=== PATIENT | female | born 1980 | race African-American/Black ===

== ENCOUNTER 2021-08-17 09:36 | Emergency (ER) | payer OTHER ==
[2021-08-17 11:08] LABS: Bilirubin Neg (Negative); Blood, Urine 150 (Negative); Clarity Cloudy (Clear); Glucose, Urine (Dipstick) >=1000 mg/dL (Negative); Ketone, Urine Negative (Negative); Leukocyte 500 (Negative); Nitrite Negative (Negative); Protein, Urine (Dipstick) 100 mg/dl (Neg-Trace); Urobilinogen Normal mg/dL (Less than 2)
[2021-08-17 11:23] LABS: Bacteria/HPF 3+ HPF (None Seen); WBC/HPF 21-50 HPF (0-3)
[2021-08-17 12:22] LABS: #Basophils 0.1 10x3/uL (0.0-0.2); #Eosinphils 0.1 10x3/uL (0.0-0.5); #Monocytes 0.7 10x3/uL (0.0-1.1); #Neutrophils 6.1 10x3/uL (1.5-8.4); %Basophils 0.7 % (0.0-2.0); %Eosinophils 0.6 % (0.0-6.0); %Lymphocytes 20.2 % (18.0-47.0); %Neutrophils 70.2 % (40.0-75.0); Hemoglobin 11.4 g/dL (12.0-15.5); Mean Corpuscular Hemoglobin 28.4 pg (27.0-33.0); Mean Corpuscular Volume 85.8 fl (81.6-98.3); Mean Platelet Volume 9.5 fl (7.4-10.4); Platelet Count 305 10x3/uL (150-450); RBC Distribution Width 12.8 % (11.5-14.5); Red Blood Cell (RBC) Count 4.02 10x6/uL (3.90-5.03); White Blood Cell (WBC) Count 8.7 10x3/uL (3.5-10.5)
[2021-08-17 12:35] LABS: Anion Gap 13 mmol/L (10-20); BUN (Urea Nitrogen) 26 mg/dL (7.0-18.7); Calc. Creatinine Clearance 0 mL/min (70-130); Calcium 9.7 mg/dL (7.8-10.44); Carbon Dioxide 26 mmol/L (22-29); Chloride 99 mmol/L (98-107); Glucose 352 mg/dL (70-105); Potassium 4.5 mmol/L (3.5-5.1); Sodium 133 mmol/L (136-145)
== END 2021-08-17 21:19 | disposition home or self-care (01) ==
LOC: CSHERS 09:36
DX: L03.116 Cellulitis of left lower limb (principal); N39.0 Urinary tract infection, site not specified; E10.9 Type 1 diabetes mellitus without complications; J45.909 Unspecified asthma, uncomplicated; F17.210 Nicotine dependence, cigarettes, uncomplicated; B20 Human immunodeficiency virus [HIV] disease
CPT/HCPCS: 36415; 80048; 81003; 81015; 83605; 85025; 87077; 87086; 87186; 99283

== ENCOUNTER 2021-08-20 15:44 | Emergency (ER) | payer OTHER ==
[2021-08-20] MEDS ORDERED: Boostrix 0.5 ML (Tdap) VIAL ONE (18:48)
[2021-08-20] MEDS ORDERED: Bacitracin 1 PK ONE (18:59)
== END 2021-08-20 19:07 | disposition home or self-care (01) ==
LOC: CSHERS 15:44
DX: L02.416 Cutaneous abscess of left lower limb (principal); N39.0 Urinary tract infection, site not specified; E10.9 Type 1 diabetes mellitus without complications; B20 Human immunodeficiency virus [HIV] disease; Z23 Encounter for immunization; F17.210 Nicotine dependence, cigarettes, uncomplicated
CPT/HCPCS: 90471; 90715; 99282

== ENCOUNTER 2021-12-16 10:39 | Emergency (ER) | payer OTHER | END 2021-12-16 12:01 | disposition home or self-care (01) | LOC: CSHERS 10:39 | DX: M79.675 Pain in left toe(s) (principal); M79.89 Other specified soft tissue disorders; F17.210 Nicotine dependence, cigarettes, uncomplicated; E10.9 Type 1 diabetes mellitus without complications; B20 Human immunodeficiency virus [HIV] disease ==

== ENCOUNTER 2021-12-19 20:05 | Inpatient (IN) | payer MEDICARE, OTHER ==
[2021-12-19 21:23] LABS: #Eosinphils 0.1 10x3/uL (0.0-0.5); #Monocytes 0.7 10x3/uL (0.0-1.1); #Neutrophils 9.8 10x3/uL (1.5-8.4); %Basophils 0.2 % (0.0-2.0); %Eosinophils 0.5 % (0.0-6.0); %Monocytes 6.1 % (0.0-10.0); %Neutrophils 82.4 % (40.0-75.0); Hemoglobin 9.6 g/dL (12.0-15.5); Mean Corpuscular HGB CONC 32.8 g/dL (32.0-36.0); Mean Corpuscular Hemoglobin 27.5 pg (27.0-33.0); Mean Platelet Volume 8.9 fl (7.4-10.4); Platelet Count 395 10x3/uL (150-450); RBC Distribution Width 12.8 % (11.5-14.5); Red Blood Cell (RBC) Count 3.49 10x6/uL (3.90-5.03); White Blood Cell (WBC) Count 11.9 10x3/uL (3.5-10.5)
[2021-12-19] MEDS ORDERED: Cefepime 2 GM VIAL ONE (21:25)
[2021-12-19 21:33] LABS: BHCG - Serum Negative (NEGATIVE); Pregs Control Background? CLEAR/WHITE (CLR/WHITE); Pregs Control Bar Appear? YES (CONTROL BAR)
[2021-12-19 21:39] LABS: ALT (SGPT) 17 U/L (8-55); AST (SGOT) 17 U/L (5-34); Albumin 3.5 g/dL (3.5-5.0); Alkaline Phosphatase 114 U/L (40-110); Anion Gap 16 mmol/L (10-20); BUN (Urea Nitrogen) 21 mg/dL (7.0-18.7); Bilirubin, Total 0.2 mg/dL (0.2-1.2); Calc. Creatinine Clearance 0 mL/min (70-130); Carbon Dioxide 26 mmol/L (22-29); Chloride 99 mmol/L (98-107); Estimated GFR 56; Globulin 4.7 g/dL (2.4-3.5); Glucose 119 mg/dL (70-105); Potassium 3.5 mmol/L (3.5-5.1); Protein, Total 8.2 g/dL (6.0-8.3); Sodium 137 mmol/L (136-145)
[2021-12-19] MEDS ORDERED: Lidocaine 1% (PF) 30 ML VIAL ONE ×2 (22:25→22:31)
[2021-12-19] MEDS ORDERED: Dextrose 5% in Water 1,000 ML IV PRN (22:34)
[2021-12-19] MEDS ORDERED: Guaifenesin DM 100-10/5 ML UDCUP PO PRN (22:35)
[2021-12-19] MEDS ORDERED: Ondansetron PF 4 MG/2 ML Vial IVP PRN (22:35)
[2021-12-19] MEDS ORDERED: Calcium Carbonate 500 MG ChewTAB PO PRN (22:35)
[2021-12-19] MEDS ORDERED: Ventolin HFA Inhaler 60 PUFF INHALER INH PRN (22:41)
[2021-12-19] MEDS ORDERED: Lactated Ringer's 1,000 ML IV SCH (23:59)
[2021-12-20 00:24] VITALS: BMI 20.4
[2021-12-20] MEDS: Morphine 2 MG/ML VIAL SLOW IVP PRN (00:28)
[2021-12-20] MEDS: HumaLOG 300 UNITS/3 ML VIAL SC PRN ×4 (00:29→17:50)
[2021-12-20 02:05] LABS: SARS-CoV-2 NAA Rapid Test Not Detected (NotDetected)
[2021-12-20 04:44] LABS: #Monocytes 0.7 10x3/uL (0.0-1.1); #Neutrophils 9.1 10x3/uL (1.5-8.4); %Basophils 0.4 % (0.0-2.0); %Eosinophils 0.4 % (0.0-6.0); %Lymphocytes 12.1 % (18.0-47.0); %Neutrophils 80.3 % (40.0-75.0); Hemoglobin 9.7 g/dL (12.0-15.5); Mean Corpuscular HGB CONC 31.9 g/dL (32.0-36.0); Mean Corpuscular Hemoglobin 26.9 pg (27.0-33.0); Mean Corpuscular Volume 84.2 fl (81.6-98.3); Mean Platelet Volume 9.6 fl (7.4-10.4); Platelet Count 398 10x3/uL (150-450); Red Blood Cell (RBC) Count 3.61 10x6/uL (3.90-5.03); White Blood Cell (WBC) Count 11.3 10x3/uL (3.5-10.5)
[2021-12-20 04:55] LABS: Anion Gap 14 mmol/L (10-20); BUN (Urea Nitrogen) 17 mg/dL (7.0-18.7); Calc. Creatinine Clearance 51 mL/min (70-130); Carbon Dioxide 24 mmol/L (22-29); Chloride 100 mmol/L (98-107); Estimated GFR 64; Glucose 263 mg/dL (70-105); Potassium 3.9 mmol/L (3.5-5.1); Sodium 134 mmol/L (136-145)
[2021-12-20 05:02] LABS: Troponin I Less than 0.010 ng/mL (< 0.028)
[2021-12-20 07:25] LABS: Troponin I Less than 0.010 ng/mL (< 0.028)
[2021-12-20] MEDS: Mometasone 100 MCG/PUFF (1 INHALER) INH SCH ×2 (07:38→18:59)
[2021-12-20] MEDS ORDERED: Gabapentin 300 MG CAP PO SCH ×2 (09:00→13:00)
[2021-12-20] MEDS ORDERED: BIKTARVY PO SCH (09:00)
[2021-12-20] MEDS: Cefepime 1 GM in Sodium Chloride 0.9% 100 ML IVPB SCH ×2 (10:58→20:55)
[2021-12-20] MEDS: Vancomycin HCl 750 MG in Sodium Chloride 0.9% 250 ML 250 ML IVPB SCH ×2 (10:59→23:30)
[2021-12-20] MEDS: Lisinopril 2.5 MG TAB PO SCH (10:59)
[2021-12-20] MEDS: Enoxaparin Sodium 40 MG/0.4 ML SYRINGE SC SCH (10:59)
[2021-12-20 12:35] LABS: Hemoglobin A1c Greater than 14.0 % (4.0-6.0)
[2021-12-20] MEDS: Acetaminophen 325 MG TAB PO PRN (13:30)
[2021-12-20] MEDS: Gabapentin 300 MG CAP PO SCH ×2 (17:48→20:56)
[2021-12-20] MEDS: Lantus 1000 UNITS/10 ML VIAL SC SCH (20:57)
[2021-12-20] MEDS: HYDROcodone/Acetaminophen 5/325 mg Tablet PO PRN (20:57)
[2021-12-21] MEDS: HumaLOG 300 UNITS/3 ML VIAL SC PRN ×3 (00:28→12:18)
[2021-12-21] MEDS: Gabapentin 300 MG CAP PO SCH ×3 (08:46→20:06)
[2021-12-21] MEDS: Enoxaparin Sodium 40 MG/0.4 ML SYRINGE SC SCH (08:46)
[2021-12-21] MEDS: Cefepime 1 GM in Sodium Chloride 0.9% 100 ML IVPB SCH ×2 (08:46→20:05)
[2021-12-21] MEDS: Lisinopril 2.5 MG TAB PO SCH (08:46)
[2021-12-21] MEDS: Dextrose 50% Abboject 50 ML SYRINGE SLOW IVP PRN (08:47)
[2021-12-21] MEDS: Mometasone 100 MCG/PUFF (1 INHALER) INH SCH ×2 (10:39→18:48)
[2021-12-21 10:59] LABS: Vancomycin, Trough 17.1 ug/mL
[2021-12-21] MEDS: Vancomycin HCl 750 MG in Sodium Chloride 0.9% 250 ML 250 ML IVPB SCH ×2 (12:17→23:19)
[2021-12-21] MEDS: hydrALAZINE 20 MG/ML VIAL SLOW IVP PRN (13:21)
[2021-12-21] MEDS: Lorazepam 0.5 MG TAB PO PRN ×2 (13:22→21:59)
[2021-12-21] MEDS: HYDROcodone/Acetaminophen 5/325 mg Tablet PO PRN ×2 (14:38→21:58)
[2021-12-21 15:13] LABS: %CD4 (Helper/Inducer) 23.1 % (30.8-58.5); Absolute CD4 254 /uL (359-1519); Lymphocytes/Gated Cell Count 1.1 x10E3/uL (0.7-3.1); Total Lymphocyte 11 % (Not Estab.); WBC Total Count 10.1 x10E3/uL (3.4-10.8)
[2021-12-21] MEDS ORDERED: Cefepime 1 GM VIAL ONE (20:06)
[2021-12-21] MEDS: Lisinopril 5 MG TAB PO SCH (20:07)
[2021-12-21] MEDS: Lantus 1000 UNITS/10 ML VIAL SC SCH (22:23)
[2021-12-22] MEDS: HumaLOG 300 UNITS/3 ML VIAL SC PRN ×3 (05:35→21:45)
[2021-12-22 06:25] LABS: Anion Gap 11 mmol/L (10-20); BUN (Urea Nitrogen) 18 mg/dL (7.0-18.7); Calc. Creatinine Clearance 47 mL/min (70-130); Calcium 9.1 mg/dL (7.8-10.44); Carbon Dioxide 27 mmol/L (22-29); Chloride 99 mmol/L (98-107); Estimated GFR 58; Glucose 379 mg/dL (70-105); Potassium 4.6 mmol/L (3.5-5.1); Sodium 132 mmol/L (136-145)
[2021-12-22 06:28] LABS: #Monocytes 0.6 10x3/uL (0.0-1.1); #Neutrophils 7.3 10x3/uL (1.5-8.4); %Basophils 0.3 % (0.0-2.0); %Eosinophils 0.4 % (0.0-6.0); %Lymphocytes 11.5 % (18.0-47.0); %Monocytes 6.1 % (0.0-10.0); %Neutrophils 80.2 % (40.0-75.0); Hemoglobin 8.7 g/dL (12.0-15.5); Mean Corpuscular HGB CONC 32.2 g/dL (32.0-36.0); Mean Corpuscular Hemoglobin 27.4 pg (27.0-33.0); Mean Corpuscular Volume 84.9 fl (81.6-98.3); Mean Platelet Volume 9.2 fl (7.4-10.4); Platelet Count 419 10x3/uL (150-450); RBC Distribution Width 13.2 % (11.5-14.5); Red Blood Cell (RBC) Count 3.18 10x6/uL (3.90-5.03); White Blood Cell (WBC) Count 9.1 10x3/uL (3.5-10.5)
[2021-12-22] MEDS: Mometasone 100 MCG/PUFF (1 INHALER) INH SCH ×2 (06:30→20:07)
[2021-12-22] MEDS: Enoxaparin Sodium 40 MG/0.4 ML SYRINGE SC SCH (07:59)
[2021-12-22] MEDS: Gabapentin 300 MG CAP PO SCH ×3 (08:12→21:28)
[2021-12-22] MEDS: hydrALAZINE 20 MG/ML VIAL SLOW IVP PRN ×2 (08:12→12:16)
[2021-12-22] MEDS: FLUoxetine HCl 10 MG CAP PO SCH (08:12)
[2021-12-22] MEDS: Cefepime 1 GM in Sodium Chloride 0.9% 100 ML IVPB SCH (08:12)
[2021-12-22] MEDS: Lisinopril 5 MG TAB PO SCH (08:12)
[2021-12-22] MEDS: Dextrose 50% Abboject 50 ML SYRINGE SLOW IVP PRN (08:15)
[2021-12-22] MEDS ORDERED: [UNRECOGNIZED DRUG - OTHER] PO SCH (09:00)
[2021-12-22] MEDS: Acetaminophen 325 MG TAB PO PRN (10:12)
[2021-12-22] MEDS ORDERED: Amlodipine 5 MG TAB PO SCH (10:30)
[2021-12-22] MEDS ORDERED: Bupivacaine 0.25% HCL 30 ML VIAL ONE (10:35)
[2021-12-22] MEDS ORDERED: Neomycin-Polymyxin 1 ML AMP ONE (10:36)
[2021-12-22] MEDS: Vancomycin HCl 750 MG in Sodium Chloride 0.9% 250 ML 250 ML IVPB SCH ×2 (10:58→23:50)
[2021-12-22] MEDS ORDERED: Fentanyl 100 MCG/2 ML VIAL ONE (13:34)
[2021-12-22] MEDS ORDERED: Midazolam HCl 2 mg/2 ml Vial ONE (13:34)
[2021-12-22] MEDS ORDERED: EPINEPHrine 1 MG/ML AMP ONE (13:50)
[2021-12-22] MEDS: hydrALAZINE 25 MG TAB PO SCH ×2 (15:30→21:27)
[2021-12-22] MEDS: HYDROcodone/Acetaminophen 10/325 mg Tablet PO PRN ×2 (16:58→23:43)
[2021-12-22] MEDS: Lisinopril 10 MG TAB PO SCH (21:26)
[2021-12-22] MEDS: Aspirin 81 mg Enteric Coated Tablet PO SCH (21:26)
[2021-12-22 21:36] LABS: HIV-1 Quantitative, RNA PCR <20 copies/mL (.)
[2021-12-22] MEDS: Lantus 1000 UNITS/10 ML VIAL SC SCH (21:42)
[2021-12-22 22:58] LABS: Vancomycin, Trough 21.2 ug/mL
[2021-12-22] MEDS ORDERED: Vancomycin HCl 500 MG in Sodium Chloride 0.9% 100 ML IVPB SCH (23:59)
[2021-12-23] MEDS: HumaLOG 300 UNITS/3 ML VIAL SC PRN ×3 (06:45→15:43)
[2021-12-23] MEDS: Morphine 2 MG/ML VIAL SLOW IVP PRN ×2 (06:48→14:16)
[2021-12-23] MEDS: HYDROcodone/Acetaminophen 10/325 mg Tablet PO PRN ×4 (06:53→21:25)
[2021-12-23] MEDS: Gabapentin 300 MG CAP PO SCH ×3 (08:18→21:25)
[2021-12-23] MEDS: Lisinopril 10 MG TAB PO SCH ×2 (08:18→21:25)
[2021-12-23] MEDS: hydrALAZINE 25 MG TAB PO SCH ×3 (08:18→21:32)
[2021-12-23] MEDS: Aspirin 81 mg Enteric Coated Tablet PO SCH ×2 (08:18→21:31)
[2021-12-23] MEDS: FLUoxetine HCl 10 MG CAP PO SCH (08:20)
[2021-12-23] MEDS: Enoxaparin Sodium 40 MG/0.4 ML SYRINGE SC SCH (08:20)
[2021-12-23] MEDS ORDERED: diphenhydrAMINE 50 MG/ML VIAL IVP PRN (08:31)
[2021-12-23] MEDS: Oxacillin 2 GM in Sodium Chloride 0.9% 100 ML IVPB SCH ×4 (11:15→21:39)
[2021-12-23] MEDS: hydrALAZINE 20 MG/ML VIAL SLOW IVP PRN (12:26)
[2021-12-23] MEDS: Mometasone 100 MCG/PUFF (1 INHALER) INH SCH ×2 (15:45→19:25)
[2021-12-23] MEDS: Lorazepam 0.5 MG TAB PO PRN (17:40)
[2021-12-23] MEDS: Lantus 1000 UNITS/10 ML VIAL SC SCH (21:29)
[2021-12-24] MEDS: Oxacillin 2 GM in Sodium Chloride 0.9% 100 ML IVPB SCH ×4 (02:00→14:16)
[2021-12-24] MEDS: HumaLOG 300 UNITS/3 ML VIAL SC PRN ×2 (06:39→11:13)
[2021-12-24] MEDS: Mometasone 100 MCG/PUFF (1 INHALER) INH SCH (07:45)
[2021-12-24] MEDS: hydrALAZINE 25 MG TAB PO SCH (08:55)
[2021-12-24] MEDS: HYDROcodone/Acetaminophen 10/325 mg Tablet PO PRN ×2 (08:56→13:34)
[2021-12-24] MEDS: Gabapentin 300 MG CAP PO SCH (08:56)
[2021-12-24] MEDS: FLUoxetine HCl 10 MG CAP PO SCH (08:57)
[2021-12-24] MEDS: Aspirin 81 mg Enteric Coated Tablet PO SCH (08:57)
[2021-12-24] MEDS: Lisinopril 10 MG TAB PO SCH (08:57)
[2021-12-24] MEDS: Enoxaparin Sodium 40 MG/0.4 ML SYRINGE SC SCH (08:58)
[2021-12-24] MEDS: Morphine 2 MG/ML VIAL SLOW IVP PRN (11:02)
[2021-12-24 12:12] VITALS: BP 161/101; TEMP 97.5
== END 2021-12-24 15:02 | disposition home or self-care (01) | DRG 970 ==
LOC: CSHERS 20:05 → CSHTELE 23:54
PROVIDERS: ADMIT Student in an Organized Health Care Education/Training Program; ATTEND Hospitalist
PROC: 0J9R0ZZ Drainage of Left Foot Subcutaneous Tissue and Fascia, Open Approach (ICD-10-PCS; 2021-12-19)
PROC: 3E03329 Introduction of Other Anti-infective into Peripheral Vein, Percutaneous Approach (ICD-10-PCS; 2021-12-19)
PROC: 0Y6Q0Z0 Detachment at Left 1st Toe, Complete, Open Approach (ICD-10-PCS; principal; 2021-12-22)
DX: A41.01 Sepsis due to Methicillin susceptible Staphylococcus aureus (principal); B20 Human immunodeficiency virus [HIV] disease; L02.612 Cutaneous abscess of left foot; L03.116 Cellulitis of left lower limb; M86.8X7 Other osteomyelitis, ankle and foot; E11.40 Type 2 diabetes mellitus with diabetic neuropathy, unspecified; F17.210 Nicotine dependence, cigarettes, uncomplicated; E11.65 Type 2 diabetes mellitus with hyperglycemia; J45.20 Mild intermittent asthma, uncomplicated; N18.30 Chronic kidney disease, stage 3 unspecified; I12.9 Hypertensive chronic kidney disease with stage 1 through stage 4 chronic kidney disease, or unspecified chronic kidney disease; E11.22 Type 2 diabetes mellitus with diabetic chronic kidney disease; D63.1 Anemia in chronic kidney disease; J45.909 Unspecified asthma, uncomplicated; F41.9 Anxiety disorder, unspecified; E11.69 Type 2 diabetes mellitus with other specified complication; Z20.822 Contact with and (suspected) exposure to COVID-19; Z88.2 Allergy status to sulfonamides; Z88.1 Allergy status to other antibiotic agents; Z79.51 Long term (current) use of inhaled steroids; Z79.899 Other long term (current) drug therapy; Z91.14 Patient's other noncompliance with medication regimen; Z98.890 Other specified postprocedural states
CPT/HCPCS: 10060; 36415; 36416; 80048; 80053; 80202; 82565; 83036; 83605; 84145; 84484; 84703; 85025; 85652; 86140; 86361; 87040; 87070; 87077; 87186; 87205; 87536; 88305; 88311; 94760; 96365; 96367; 97139; J0171; J0360; J0692; J1200; J1650; J1815; J2001; J2250; J2270; J2700; J3010; J3370; J3490; J7050; J7120; J7999; S0020; U0002

== ENCOUNTER 2022-02-19 13:59 | Emergency (ER) | payer OTHER ==
[2022-02-19] MEDS ORDERED: diphenhydrAMINE 50 MG/ML VIAL ONE (15:52)
[2022-02-19] MEDS ORDERED: Ketorolac Tromethamine 30 MG/ML VIAL ONE (15:52)
[2022-02-19] MEDS ORDERED: Magnesium 2 GM/50 ML BAG (IN WATER) ONE (15:52)
== END 2022-02-19 18:23 | disposition home or self-care (01) ==
LOC: CSHERS 13:59
DX: S09.90XA Unspecified injury of head, initial encounter (principal); E10.9 Type 1 diabetes mellitus without complications; Z79.4 Long term (current) use of insulin; B20 Human immunodeficiency virus [HIV] disease; F17.210 Nicotine dependence, cigarettes, uncomplicated; V89.2XXA Person injured in unspecified motor-vehicle accident, traffic, initial encounter
CPT/HCPCS: 70450; 96361; 96374; 96375; J1200; J1885; J3475

== ENCOUNTER 2022-08-17 12:19 | Emergency (ER) | payer OTHER ==
[2022-08-17] MEDS ORDERED: Dextrose 50% Abboject 50 ML SYRINGE ONE (12:25)
[2022-08-17 12:33] LABS: #Basophils 0.1 10x3/uL (0.0-0.2); #Eosinphils 0.1 10x3/uL (0.0-0.5); #Monocytes 0.5 10x3/uL (0.0-1.1); #Neutrophils 5.2 10x3/uL (1.5-8.4); %Basophils 0.7 % (0.0-2.0); %Eosinophils 0.9 % (0.0-6.0); %Lymphocytes 30.5 % (18.0-47.0); %Monocytes 6.3 % (0.0-10.0); %Neutrophils 61.1 % (40.0-75.0); Hemoglobin 11.5 g/dL (12.0-15.5); Mean Corpuscular HGB CONC 31.9 g/dL (32.0-36.0); Mean Corpuscular Hemoglobin 26.6 pg (27.0-33.0); Mean Corpuscular Volume 83.1 fl (81.6-98.3); Mean Platelet Volume 8.6 fl (7.4-10.4); Platelet Count 406 10x3/uL (150-450); RBC Distribution Width 13.4 % (11.5-14.5); Red Blood Cell (RBC) Count 4.33 10x6/uL (3.90-5.03); White Blood Cell (WBC) Count 8.6 10x3/uL (3.5-10.5)
[2022-08-17 12:49] LABS: ALT (SGPT) 15 U/L (8-55); AST (SGOT) 22 U/L (5-34); Albumin 4.2 g/dL (3.5-5.0); Alkaline Phosphatase 86 U/L (40-110); Anion Gap 14 mmol/L (10-20); BUN (Urea Nitrogen) 21 mg/dL (7.0-18.7); Bilirubin, Total 0.1 mg/dL (0.2-1.2); Calc. Creatinine Clearance 0 mL/min (70-130); Carbon Dioxide 23 mmol/L (22-29); Chloride 107 mmol/L (98-107); Estimated GFR 49; Globulin 4.8 g/dL (2.4-3.5); Potassium 4.2 mmol/L (3.5-5.1); Sodium 140 mmol/L (136-145)
[2022-08-17 12:56] LABS: Glucose 19 mg/dL (70-105)
== END 2022-08-17 15:18 | disposition home or self-care (01) ==
LOC: CSHERS 12:19
DX: E10.649 Type 1 diabetes mellitus with hypoglycemia without coma (principal); B20 Human immunodeficiency virus [HIV] disease; F17.210 Nicotine dependence, cigarettes, uncomplicated; Z79.899 Other long term (current) drug therapy; Z79.4 Long term (current) use of insulin
CPT/HCPCS: 36416; 93005; 96374; J7999

== ENCOUNTER 2022-08-22 06:11 | Day surgery (SDC) | payer OTHER ==
[2022-08-21 10:28] VITALS: BMI 22.3
[2022-08-22] MEDS ORDERED: Bupivacaine HCl 0.5%/Epinephrine 1:200,000/PF 30 ml Vial ONE (06:24)
[2022-08-22] MEDS ORDERED: CeleCOXIB 100 MG CAP ONE (06:44)
[2022-08-22] MEDS ORDERED: Famotidine/PF 20 mg/2ml Vial ONE (06:44)
[2022-08-22] MEDS ORDERED: CEFAZOLIN 2 GM VIAL ONE (06:56)
[2022-08-22] MEDS ORDERED: Midazolam HCl 2 mg/2 ml Vial ONE ×2 (06:58→07:26)
[2022-08-22] MEDS ORDERED: PROPOFOL 20 ML ONE (06:58)
[2022-08-22] MEDS ORDERED: Rocuronium Bromide 10 MG/ML (10ML VIAL) ONE (06:58)
[2022-08-22] MEDS ORDERED: Lidocaine 1% PF 5 ML VIAL ONE (06:58)
[2022-08-22] MEDS ORDERED: Fentanyl 100 MCG/2 ML VIAL ONE ×2 (06:58→09:46)
[2022-08-22] MEDS ORDERED: ePHEDrine Sulfate 50 MG/10 ML VIAL ONE (06:59)
[2022-08-22] MEDS ORDERED: Insulin Regular 300 UNITS/3 ML VIAL ONE (07:06)
[2022-08-22 07:14] LABS: BHCG - Serum Negative (NEGATIVE); Pregs Control Background? CLEAR/WHITE (CLR/WHITE); Pregs Control Bar Appear? YES (CONTROL BAR)
[2022-08-22] MEDS ORDERED: Ondansetron PF 4 MG/2 ML Vial ONE (08:33)
[2022-08-22] MEDS ORDERED: SUGAMMADEX SODIUM 200 MG/2 ML VIAL ONE (09:04)
[2022-08-22] MEDS ORDERED: PHENYLEPHRINE-NS 100 MCG/ML 10 ML SYRINGE ONE (09:07)
[2022-08-22] MEDS ORDERED: HYDROcodone/Acetaminophen 5/325 mg Tablet ONE (10:46)
== END 2022-08-22 13:25 | disposition home or self-care (01) ==
LOC: CSHSDC 06:11
PROVIDERS: ATTEND Obstetrics & Gynecology
PROC: 0UT94ZZ Resection of Uterus, Percutaneous Endoscopic Approach (ICD-10-PCS; principal; 2022-08-22)
PROC: 0UT74ZZ Resection of Bilateral Fallopian Tubes, Percutaneous Endoscopic Approach (ICD-10-PCS; principal; 2022-08-22)
PROC: 0UT24ZZ Resection of Bilateral Ovaries, Percutaneous Endoscopic Approach (ICD-10-PCS; principal; 2022-08-22)
DX: N80.03 Adenomyosis of the uterus (principal); R87.613 High grade squamous intraepithelial lesion on cytologic smear of cervix (HGSIL); R87.810 Cervical high risk human papillomavirus (HPV) DNA test positive; N70.11 Chronic salpingitis; N73.6 Female pelvic peritoneal adhesions (postinfective); E11.43 Type 2 diabetes mellitus with diabetic autonomic (poly)neuropathy; K31.84 Gastroparesis; N83.8 Other noninflammatory disorders of ovary, fallopian tube and broad ligament; B20 Human immunodeficiency virus [HIV] disease; I10 Essential (primary) hypertension; Z79.899 Other long term (current) drug therapy; Z98.890 Other specified postprocedural states; Z79.4 Long term (current) use of insulin; Z88.2 Allergy status to sulfonamides; F17.200 Nicotine dependence, unspecified, uncomplicated
CPT/HCPCS: 36416; 84703; 86850; 86900; 86901; 88307; 88341; 88342; C9250; J1815; J2250; J2405; J2704; J3010; S0028

== ENCOUNTER 2023-03-26 19:25 | Emergency (ER) | payer MEDICARE, OTHER ==
[2023-03-26] MEDS ORDERED: Acetaminophen 500 MG TAB ONE (19:58)
[2023-03-26 20:59] LABS: SARS-CoV-2 NAA Rapid Test Not Detected (NotDetected)
== END 2023-03-26 21:10 | disposition home or self-care (01) ==
LOC: CSHERS 19:25
DX: J10.1 Influenza due to other identified influenza virus with other respiratory manifestations (principal); F17.210 Nicotine dependence, cigarettes, uncomplicated; E10.9 Type 1 diabetes mellitus without complications; Z20.822 Contact with and (suspected) exposure to COVID-19
CPT/HCPCS: 0240U; 71045; 99283

== ENCOUNTER 2023-04-06 09:51 | Inpatient (IN) | payer MEDICARE ==
[2023-04-06] MEDS ORDERED: Ketorolac Tromethamine 30 MG/ML VIAL ONE (10:56)
[2023-04-06 11:09] LABS: #Eosinphils 0.1 10x3/uL (0.0-0.5); #Monocytes 1.4 10x3/uL (0.0-1.1); #Neutrophils 14.7 10x3/uL (1.5-8.4); %Basophils 0.2 % (0.0-2.0); %Eosinophils 0.5 % (0.0-6.0); %Lymphocytes 9.2 % (18.0-47.0); %Monocytes 7.6 % (0.0-10.0); %Neutrophils 81.9 % (40.0-75.0); Hemoglobin 9.6 g/dL (12.0-15.5); Mean Corpuscular Hemoglobin 27.3 pg (27.0-33.0); Mean Corpuscular Volume 85.2 fl (81.6-98.3); Platelet Count 564 10x3/uL (150-450); RBC Distribution Width 13.8 % (11.5-14.5); Red Blood Cell (RBC) Count 3.52 10x6/uL (3.90-5.03); White Blood Cell (WBC) Count 17.9 10x3/uL (3.5-10.5)
[2023-04-06 11:17] LABS: CRP (Inflammatory) 24.45 mg/dL (= or < 0.5); Lipase 7 U/L (8-78)
[2023-04-06 11:20] LABS: Prothrombin Time 10.5 sec (9.5-12.1)
[2023-04-06 11:40] LABS: ALT (SGPT) 10 U/L (8-55); AST (SGOT) 18 U/L (5-34); Albumin 3.1 g/dL (3.5-5.0); Alkaline Phosphatase 132 U/L (40-110); Anion Gap 20 mmol/L (10-20); BUN (Urea Nitrogen) 16 mg/dL (7.0-18.7); Bilirubin, Total 0.2 mg/dL (0.2-1.2); Calc. Creatinine Clearance 0 mL/min (70-130); Calcium 8.6 mg/dL (7.8-10.44); Carbon Dioxide 19 mmol/L (22-29); Chloride 92 mmol/L (98-107); Estimated GFR 26; Globulin 4.6 g/dL (2.4-3.5); Glucose 687 mg/dL (70-105); Magnesium 1.9 mg/dL (1.6-2.6); Potassium 5.8 mmol/L (3.5-5.1); Protein, Total 7.7 g/dL (6.0-8.3); Sodium 125 mmol/L (136-145)
[2023-04-06 12:03] LABS: Actual Bicarbonate (HCO3v) 21.8 mEq/L (22-28); Analyzer IN Cardio CS ER; Base Excess -2.6 mEq/L (-2 - +2); Calcium, Ionized (venous) 1.09 mmol/L (1.16-1.32); Chloride (VBG) 97 mmol/L (98-106); Hematocrit-VBG 28 % (36.0-47.0); Hemoglobin (Hb) 9.4 g/dL (11.7-15.5); Puncture Site Other Site; RapidComm Collect By LAB; Sodium 127 mmol/L (133-146); pH (venous) 7.401 (7.32-7.43)
[2023-04-06] MEDS ORDERED: Cefepime 2 GM VIAL ONE (12:09)
[2023-04-06] MEDS ORDERED: Vancomycin 1 GM VIAL ONE (12:09)
[2023-04-06] MEDS ORDERED: Insulin Regular 300 UNITS/3 ML VIAL ONE (12:09)
[2023-04-06 12:14] LABS: SARS-CoV-2 NAA Rapid Test Not Detected (NotDetected)
[2023-04-06 12:21] LABS: Phosphorus 4.6 mg/dL (2.3-4.7)
[2023-04-06] MEDS ORDERED: Ondansetron PF 4 MG/2 ML Vial IVP PRN (13:00)
[2023-04-06] MEDS ORDERED: Dextrose 50% Abboject 50 ML SYRINGE SLOW IVP PRN (13:00)
[2023-04-06] MEDS ORDERED: Electrolyte Replacement Protocol 1 EACH IVPB PRN (13:00)
[2023-04-06] MEDS ORDERED: Dextrose 5 %-0.45 % NaCl 1,000 ML IV PRN (13:00)
[2023-04-06] MEDS ORDERED: D5 1/2 NS w/20 mEq KCL 1,000 ML IV PRN (13:00)
[2023-04-06] MEDS ORDERED: NS 0.9% w/ 20 MEQ KCL 1,000 ML IV PRN ×2 (13:00)
[2023-04-06] MEDS ORDERED: Sodium Chloride 0.9% 1,000 ML IV PRN ×4 (13:00)
[2023-04-06] MEDS ORDERED: INSULIN REGULAR IN 0.9 % NACL 100 UNITS/100 ML BAG ONE (13:05)
[2023-04-06 13:51] LABS: BHCG - Serum Negative (NEGATIVE); Pregs Control Background? CLEAR/WHITE (CLR/WHITE); Pregs Control Bar Appear? YES (CONTROL BAR)
[2023-04-06 13:53] LABS: Anion Gap 17 mmol/L (10-20); BUN (Urea Nitrogen) 15 mg/dL (7.0-18.7); Calc. Creatinine Clearance 0 mL/min (70-130); Calcium 8.4 mg/dL (7.8-10.44); Carbon Dioxide 16 mmol/L (22-29); Chloride 101 mmol/L (98-107); Estimated GFR 33; Glucose 311 mg/dL (70-105); Potassium 4.1 mmol/L (3.5-5.1); Sodium 130 mmol/L (136-145)
[2023-04-06 14:02] LABS: Phosphorus 3.6 mg/dL (2.3-4.7)
[2023-04-06] MEDS: Azithromycin 500 MG in Sodium Chloride 0.9% 250 ML 250 ML IVPB SCH (14:29)
[2023-04-06] MEDS ORDERED: INSULIN REGULAR IN 0.9 % NACL 100 UNITS in Premix 1 BAG IVPB SCH (14:30)
[2023-04-06 14:43] LABS: Iron 19 ug/dL (50-170); Iron Binding Capacity, Total 128 mcg/dL (265-497)
[2023-04-06] MEDS ORDERED: Magnesium 2 GM/50 ML(in water) 2 GM in Premix 1 BAG IVPB SCH (15:00)
[2023-04-06] MEDS ORDERED: Pantoprazole 40 MG VIAL IVP SCH (15:00)
[2023-04-06 15:06] VITALS: BMI 20.6
[2023-04-06 15:08] LABS: Bilirubin Neg (Negative); Blood, Urine 150 (Negative); Glucose, Urine (Dipstick) >=1000 mg/dL (Negative); Ketone, Urine Negative (Negative); Leukocyte Negative (Negative); Nitrite Negative (Negative); Protein, Urine (Dipstick) 500 mg/dl (Neg-Trace); Specific Gravity, Urine 1.015 (1.005-1.030); Urobilinogen Normal mg/dL (Less than 2)
[2023-04-06 15:09] LABS: Clarity Hazy (Clear)
[2023-04-06 15:27] LABS: Strep pneumo Urine Ag NEGATIVE (NEGATIVE)
[2023-04-06 15:28] LABS: Legionella Urinary Ag Negative (Negative)
[2023-04-06] MEDS ORDERED: Benzonatate 100 MG CAP PO SCH (15:30)
[2023-04-06 15:35] LABS: CAUTI Indications for Culture Pelvic or flank pain
[2023-04-06 15:36] LABS: Bacteria/HPF 2+ HPF (None Seen)
[2023-04-06 15:41] LABS: Mucous/LPF 2+ LPF (<2+)
[2023-04-06 15:42] LABS: Urine Culture Reflex No No
[2023-04-06 16:58] LABS: Hemoglobin A1c 13.1 % (4.0-6.0)
[2023-04-06] MEDS ORDERED: Lidocaine 2% Viscous Solution 10 ML, Aluminum & Magnesium Hydroxide 30 ML SSW SCH (17:00)
[2023-04-06 17:54] LABS: Actual Bicarbonate (HCO3v) 16.8 mEq/L (22-28); Analyzer IN Cardio CS ER; Base Excess -7.7 mEq/L (-2 - +2); Calcium, Ionized (venous) 1.07 mmol/L (1.16-1.32); Chloride (VBG) 105 mmol/L (98-106); Hematocrit-VBG 26 % (36.0-47.0); Puncture Site Other Site; RapidComm Collect By LAB; Sodium 133 mmol/L (133-146); pH (venous) 7.358 (7.32-7.43)
[2023-04-06 18:23] LABS: Anion Gap 16 mmol/L (10-20); BUN (Urea Nitrogen) 14 mg/dL (7.0-18.7); Calc. Creatinine Clearance 32 mL/min (70-130); Calcium 8.2 mg/dL (7.8-10.44); Carbon Dioxide 14 mmol/L (22-29); Chloride 106 mmol/L (98-107); Estimated GFR 36; Glucose 190 mg/dL (70-105); Potassium 3.9 mmol/L (3.5-5.1); Sodium 132 mmol/L (136-145)
[2023-04-06] MEDS ORDERED: Loperamide HCl 2 MG CAP PO SCH (20:15)
[2023-04-06] MEDS: Gabapentin 400 MG CAP PO SCH (20:22)
[2023-04-06] MEDS: guaiFENesin ER 600 MG TAB PO SCH (20:23)
[2023-04-06] MEDS: Pantoprazole 40 MG VIAL IVP SCH (20:23)
[2023-04-06] MEDS: cefTRIAXone\\ROCEPHIN 2 GM in Sodium Chloride 0.9% 100 ML IVPB SCH (20:23)
[2023-04-06] MEDS: Rosuvastatin 10 MG TAB PO SCH (20:23)
[2023-04-06] MEDS: Benzonatate 100 MG CAP PO SCH (20:23)
[2023-04-06] MEDS: Acetaminophen 325 MG TAB PO PRN (20:39)
[2023-04-06 21:47] LABS: Anion Gap 15 mmol/L (10-20); BUN (Urea Nitrogen) 14 mg/dL (7.0-18.7); Calc. Creatinine Clearance 30 mL/min (70-130); Calcium 8.5 mg/dL (7.8-10.44); Carbon Dioxide 16 mmol/L (22-29); Chloride 106 mmol/L (98-107); Estimated GFR 33; Glucose 277 mg/dL (70-105); Potassium 4.1 mmol/L (3.5-5.1); Sodium 133 mmol/L (136-145)
[2023-04-07 03:55] LABS: #Basophils 0.1 10x3/uL (0.0-0.2); #Monocytes 1.5 10x3/uL (0.0-1.1); #Neutrophils 16.7 10x3/uL (1.5-8.4); %Basophils 0.3 % (0.0-2.0); %Eosinophils 0.2 % (0.0-6.0); %Lymphocytes 6.8 % (18.0-47.0); %Monocytes 7.4 % (0.0-10.0); %Neutrophils 84.3 % (40.0-75.0); Hematocrit 25.5 % (34.9-44.5); Hemoglobin 8.1 g/dL (12.0-15.5); Mean Corpuscular HGB CONC 31.8 g/dL (32.0-36.0); Mean Corpuscular Hemoglobin 26.9 pg (27.0-33.0); Mean Corpuscular Volume 84.7 fl (81.6-98.3); Mean Platelet Volume 8.6 fl (7.4-10.4); Platelet Count 564 10x3/uL (150-450); Red Blood Cell (RBC) Count 3.01 10x6/uL (3.90-5.03); White Blood Cell (WBC) Count 19.8 10x3/uL (3.5-10.5)
[2023-04-07 04:09] LABS: ALT (SGPT) 9 U/L (8-55); AST (SGOT) 16 U/L (5-34); Albumin 2.9 g/dL (3.5-5.0); Alkaline Phosphatase 111 U/L (40-110); Bilirubin, Direct 0.1 mg/dL (0.1-0.3); Bilirubin, Total Less than 0.2 mg/dL (0.2-1.2); Protein, Total 7.2 g/dL (6.0-8.3)
[2023-04-07 04:10] LABS: Anion Gap 15 mmol/L (10-20); BUN (Urea Nitrogen) 15 mg/dL (7.0-18.7); Calc. Creatinine Clearance 31 mL/min (70-130); Calcium 8.8 mg/dL (7.8-10.44); Carbon Dioxide 17 mmol/L (22-29); Chloride 106 mmol/L (98-107); Estimated GFR 35; Glucose 139 mg/dL (70-105); Magnesium 2.4 mg/dL (1.6-2.6); Sodium 134 mmol/L (136-145)
[2023-04-07] MEDS: Benzonatate 100 MG CAP PO SCH ×3 (07:36→20:16)
[2023-04-07] MEDS: guaiFENesin ER 600 MG TAB PO SCH ×2 (07:36→20:22)
[2023-04-07] MEDS: Pantoprazole 40 MG VIAL IVP SCH ×2 (07:36→20:16)
[2023-04-07] MEDS: FLUoxetine HCl 10 MG CAP PO SCH (07:36)
[2023-04-07] MEDS: Gabapentin 400 MG CAP PO SCH (07:37)
[2023-04-07] MEDS ORDERED: Insulin NPH Human Isophane 100 UNITS/ML (10 ML VIAL) SC SCH (09:00)
[2023-04-07] MEDS ORDERED: FLU VACC QS2023-24(6MOS UP)/PF 60 MCG/0.5 ML SYRINGE IM ONE (09:00)
[2023-04-07] MEDS ORDERED: Glucagon 1 MG/ML KIT IM PRN (09:01)
[2023-04-07] MEDS ORDERED: Dextrose 5% in Water 1,000 ML IV PRN (09:01)
[2023-04-07] MEDS ORDERED: HumaLOG 300 UNITS/3 ML VIAL SC PRN (09:01)
[2023-04-07] MEDS: Sodium Chloride 0.9% 1,000 ML IV SCH ×2 (09:10→17:40)
[2023-04-07] MEDS: Dextrose 50% Abboject 50 ML SYRINGE SLOW IVP PRN ×2 (09:21→12:59)
[2023-04-07] MEDS ORDERED: Gabapentin 400 MG CAP PO SCH (12:54)
[2023-04-07] MEDS ORDERED: Amlodipine 5 MG TAB PO SCH (13:30)
[2023-04-07] MEDS: Azithromycin 500 MG in Sodium Chloride 0.9% 250 ML 250 ML IVPB SCH (14:12)
[2023-04-07] MEDS ORDERED: Labetalol HCl 100 MG/20 ML VIAL SLOW IVP PRN (14:34)
[2023-04-07] MEDS: Gabapentin 300 MG CAP PO SCH ×2 (14:55→20:14)
[2023-04-07] MEDS: Loperamide HCl 2 MG CAP PO PRN ×3 (15:00→22:23)
[2023-04-07] MEDS: HumaLOG 300 UNITS/3 ML VIAL SC PRN ×2 (16:39→20:27)
[2023-04-07] MEDS: Carvedilol 3.125 MG TAB PO SCH (16:40)
[2023-04-07] MEDS: Heparin 5,000 UNITS/ML VIAL SC SCH (20:16)
[2023-04-07] MEDS: cefTRIAXone\\ROCEPHIN 2 GM in Sodium Chloride 0.9% 100 ML IVPB SCH (20:16)
[2023-04-07] MEDS: Rosuvastatin 10 MG TAB PO SCH (20:16)
[2023-04-07] MEDS ORDERED: Lantus 1000 UNITS/10 ML VIAL SC SCH (21:00)
[2023-04-08] MEDS: Sodium Chloride 0.9% 1,000 ML IV SCH ×3 (01:46→17:41)
[2023-04-08 03:23] LABS: #Eosinphils 0.1 10x3/uL (0.0-0.5); #Monocytes 1.2 10x3/uL (0.0-1.1); #Neutrophils 13.5 10x3/uL (1.5-8.4); %Basophils 0.2 % (0.0-2.0); %Eosinophils 0.4 % (0.0-6.0); %Lymphocytes 11.9 % (18.0-47.0); %Monocytes 7.1 % (0.0-10.0); %Neutrophils 79.6 % (40.0-75.0); Hematocrit 22.6 % (34.9-44.5); Hemoglobin 7.3 g/dL (12.0-15.5); Mean Corpuscular HGB CONC 32.3 g/dL (32.0-36.0); Mean Corpuscular Hemoglobin 27.2 pg (27.0-33.0); Mean Corpuscular Volume 84.3 fl (81.6-98.3); Mean Platelet Volume 8.9 fl (7.4-10.4); Platelet Count 511 10x3/uL (150-450); RBC Distribution Width 13.9 % (11.5-14.5); Red Blood Cell (RBC) Count 2.68 10x6/uL (3.90-5.03)
[2023-04-08 03:48] LABS: Anion Gap 13 mmol/L (10-20); BUN (Urea Nitrogen) 12 mg/dL (7.0-18.7); Calc. Creatinine Clearance 43 mL/min (70-130); Calcium 8.6 mg/dL (7.8-10.44); Carbon Dioxide 17 mmol/L (22-29); Chloride 111 mmol/L (98-107); Estimated GFR 51; Glucose 145 mg/dL (70-105); Magnesium 1.9 mg/dL (1.6-2.6); Potassium 4.2 mmol/L (3.5-5.1); Sodium 137 mmol/L (136-145)
[2023-04-08] MEDS ORDERED: Magnesium 2 GM/50 ML(in water) 2 GM in Premix 1 BAG IVPB SCH (06:00)
[2023-04-08] MEDS: HumaLOG 300 UNITS/3 ML VIAL SC PRN ×2 (08:09→16:48)
[2023-04-08] MEDS: Heparin 5,000 UNITS/ML VIAL SC SCH ×3 (08:09→20:47)
[2023-04-08] MEDS: Gabapentin 300 MG CAP PO SCH ×2 (08:10→13:49)
[2023-04-08] MEDS: Carvedilol 3.125 MG TAB PO SCH ×2 (08:11→16:48)
[2023-04-08] MEDS: Amlodipine 10 MG TAB PO SCH (08:11)
[2023-04-08] MEDS: Benzonatate 100 MG CAP PO SCH ×3 (08:11→20:46)
[2023-04-08] MEDS: Loperamide HCl 2 MG CAP PO PRN ×3 (08:11→22:15)
[2023-04-08] MEDS: guaiFENesin ER 600 MG TAB PO SCH ×2 (08:11→20:46)
[2023-04-08] MEDS: FLUoxetine HCl 10 MG CAP PO SCH (08:11)
[2023-04-08] MEDS: Pantoprazole 40 MG VIAL IVP SCH ×2 (08:12→20:47)
[2023-04-08 12:14] LABS: %CD4 (Helper/Inducer) 25.9 % (30.8-58.5); Absolute CD4 414 /uL (359-1519); Lymphocytes/Gated Cell Count 1.6 x10E3/uL (0.7-3.1); Total Lymphocyte 8 % (Not Estab.); WBC Total Count 19.7 x10E3/uL (3.4-10.8)
[2023-04-08] MEDS ORDERED: Gabapentin 400 MG CAP PO SCH (15:00)
[2023-04-08] MEDS ORDERED: Gabapentin 300 MG CAP PO SCH (15:45)
[2023-04-08] MEDS: Azithromycin 500 MG in Sodium Chloride 0.9% 250 ML 250 ML IVPB SCH (15:49)
[2023-04-08 16:55] LABS: Campy jejuni + coli by PCR Negative (Negative); STEC Shiga Toxin 1+2 Negative (Negative); Salmonella spp. by PCR Negative (Negative); Shigella spp + EIEC by PCR Negative (Negative)
[2023-04-08] MEDS ORDERED: BIKTARVY PO SCH (17:00)
[2023-04-08] MEDS ORDERED: DEXTROMETHORPHAN 30 MG/5 ML PO PRN (18:16)
[2023-04-08] MEDS: Acetaminophen 325 MG TAB PO PRN (20:43)
[2023-04-08] MEDS: Gabapentin 400 MG CAP PO SCH (20:44)
[2023-04-08] MEDS: Rosuvastatin 10 MG TAB PO SCH (20:46)
[2023-04-08] MEDS: cefTRIAXone\\ROCEPHIN 2 GM in Sodium Chloride 0.9% 100 ML IVPB SCH (20:47)
[2023-04-09] MEDS: Sodium Chloride 0.9% 1,000 ML IV SCH ×2 (00:27→11:34)
[2023-04-09] MEDS: Acetaminophen 325 MG TAB PO PRN (04:55)
[2023-04-09] MEDS: HumaLOG 300 UNITS/3 ML VIAL SC PRN ×2 (04:56→12:42)
[2023-04-09 05:03] LABS: #Basophils 0.1 10x3/uL (0.0-0.2); #Eosinphils 0.1 10x3/uL (0.0-0.5); #Monocytes 0.9 10x3/uL (0.0-1.1); #Neutrophils 10.1 10x3/uL (1.5-8.4); %Basophils 0.4 % (0.0-2.0); %Eosinophils 0.6 % (0.0-6.0); %Lymphocytes 12.9 % (18.0-47.0); %Monocytes 6.6 % (0.0-10.0); %Neutrophils 77.6 % (40.0-75.0); Hematocrit 24.6 % (34.9-44.5); Hemoglobin 7.8 g/dL (12.0-15.5); Mean Corpuscular HGB CONC 31.7 g/dL (32.0-36.0); Mean Corpuscular Hemoglobin 26.7 pg (27.0-33.0); Mean Corpuscular Volume 84.2 fl (81.6-98.3); Mean Platelet Volume 8.7 fl (7.4-10.4); Platelet Count 531 10x3/uL (150-450); Red Blood Cell (RBC) Count 2.92 10x6/uL (3.90-5.03)
[2023-04-09 05:19] LABS: Anion Gap 14 mmol/L (10-20); BUN (Urea Nitrogen) 13 mg/dL (7.0-18.7); Calc. Creatinine Clearance 46 mL/min (70-130); Calcium 8.3 mg/dL (7.8-10.44); Carbon Dioxide 16 mmol/L (22-29); Chloride 110 mmol/L (98-107); Estimated GFR 56; Glucose 209 mg/dL (70-105); Magnesium 1.8 mg/dL (1.6-2.6); Potassium 4.1 mmol/L (3.5-5.1); Sodium 136 mmol/L (136-145)
[2023-04-09] MEDS: Carvedilol 3.125 MG TAB PO SCH (07:44)
[2023-04-09] MEDS: Gabapentin 400 MG CAP PO SCH (07:44)
[2023-04-09] MEDS: Heparin 5,000 UNITS/ML VIAL SC SCH (07:44)
[2023-04-09] MEDS: Amlodipine 10 MG TAB PO SCH (07:44)
[2023-04-09] MEDS: Pantoprazole 40 MG VIAL IVP SCH (07:45)
[2023-04-09] MEDS: FLUoxetine HCl 10 MG CAP PO SCH (07:45)
[2023-04-09] MEDS: guaiFENesin ER 600 MG TAB PO SCH (07:45)
[2023-04-09] MEDS: Benzonatate 100 MG CAP PO SCH (07:45)
[2023-04-09] MEDS ORDERED: Magnesium 2 GM/50 ML(in water) 2 GM in Premix 1 BAG IVPB SCH (09:00)
[2023-04-09] MEDS ORDERED: Lactated Ringer's 1,000 ML IV SCH (10:30)
[2023-04-09 12:52] VITALS: BP 131/66; TEMP 97.6
[2023-04-11 14:37] LABS: Adenovirus F 40-41 Not Detected (Not Detected); Astrovirus Not Detected (Not Detected); C. difficile toxin A+B Not Detected (Not Detected); Campylobacter by PCR Not Detected (Not Detected); Cryptosporidium Not Detected (Not Detected); Cyclospora cayetanensis Not Detected (Not Detected); Entamoeba histolytica Not Detected (Not Detected); Enteroaggregative E. coli Not Detected (Not Detected); Enteropathogenic E. coli Not Detected (Not Detected); Enterotoxigenic E. coli Not Detected (Not Detected); Giardia lamblia Not Detected (Not Detected); Norovirus GI-GII Not Detected (Not Detected); Plesiomonas shigelloides Not Detected (Not Detected); Rotavirus A Not Detected (Not Detected); Salmonella Not Detected (Not Detected); Sapovirus Not Detected (Not Detected); Shiga-toxin-producing E coli Not Detected (Not Detected); Shigella/Enteroinvasive E coli Not Detected (Not Detected); Vibrio Not Detected (Not Detected); Vibrio cholerae Not Detected (Not Detected); Yersinia enterocolitica Not Detected (Not Detected)
== END 2023-04-09 15:00 | disposition home or self-care (01) | DRG 177 ==
LOC: CSHERS 09:51 → SUATTDRO 09:51 → CSHIMCU 14:11 → CSHTELE 04-08 17:15
PROVIDERS: ADMIT Family Medicine; ATTEND Family Medicine
DX: J15.211 Pneumonia due to Methicillin susceptible Staphylococcus aureus (principal); E11.10 Type 2 diabetes mellitus with ketoacidosis without coma; N17.9 Acute kidney failure, unspecified; J45.901 Unspecified asthma with (acute) exacerbation; F41.9 Anxiety disorder, unspecified; R00.0 Tachycardia, unspecified; E87.5 Hyperkalemia; D64.9 Anemia, unspecified; I10 Essential (primary) hypertension; E86.0 Dehydration; E11.649 Type 2 diabetes mellitus with hypoglycemia without coma; K52.9 Noninfective gastroenteritis and colitis, unspecified; J10.1 Influenza due to other identified influenza virus with other respiratory manifestations; J12.89 Other viral pneumonia; Z21 Asymptomatic human immunodeficiency virus [HIV] infection status; Z11.52 Encounter for screening for COVID-19; Z88.2 Allergy status to sulfonamides; Z88.1 Allergy status to other antibiotic agents; Z79.51 Long term (current) use of inhaled steroids; Z79.4 Long term (current) use of insulin; Z79.899 Other long term (current) drug therapy; Z89.412 Acquired absence of left great toe
CPT/HCPCS: 36415; 36416; 71045; 80048; 80053; 80076; 81001; 82010; 82274; 82607; 82728; 82805; 83036; 83540; 83550; 83690; 83735; 83930; 84100; 84703; 85025; 85046; 85610; 85730; 86140; 86361; 87040; 87070; 87077; 87081; 87186; 87205; 87324; 87449; 87505; 87507; 87536; 87899; 93005; 93010; 96361; 96365; 96367; 96375; C9113; J0456; J0692; J0696; J1644; J1815; J1885; J3370; J3475; J3480; J3490; J7050; J7120; J7611; J7999